=== PATIENT | female | born 1970 | race American Indian/Alaskan Native ===

== ENCOUNTER 2019-08-22 13:56 | Emergency (ER) | payer MEDICARE ==
[2019-08-22 14:03] VITALS: BP 156/102
--- NOTE | 2019-08-22 14:12 | Event Note ---
ED Screening Note Date of service: 08/22/19 Time: 14:08 ED Screening Note: 49 y/o female comes in for right knee pain and not been able to bend. Taking Ibuprofen and Tylenol. 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 This initial assessment/diagnostic orders/clinical plan/treatment(s) is/are subject to change based on patients health status, clinical progression and re- assessment by fellow clinical providers in the ED. Further treatment and workup at subsequent clinical providers discretion. Patient/guardian urged not to elope from the ED as their condition may be serious if not clinically assessed and managed. Initial orders include:
--- NOTE | 2019-08-22 14:40 | XRay Report ---
XR knee 3V RT INDICATION / CLINICAL INFORMATION: Worsening right knee pain. COMPARISON: 10/23/2018. FINDINGS: BONES/JOINT(S): Unchanged appearance of right total knee arthroplasty without evidence of hardware fr acture or loosening. No aggressive-appearing bone destruction or bone lesion. SOFT TISSUES: No significant abnormality. ADDITIONAL FINDINGS: None. Signer Name: Jonatan Wheeler MD Signed: 08/22/2019 2:36 PM Workstation Name: [id number]
--- NOTE | 2019-08-22 15:33 | Emergency Department Report ---
ED Back Pain/Injury HPI - General Chief Complaint: Extremity Injury, Lower Stated Complaint: RT KNEE PAIN/CANT BEND Time Seen by Provider: 08/22/19 14:08 Source: patient Limitations: No Limitations - History of Present Illness Initial Comments: 49 YO OBESE AA FEMALE COMES TO ER WITH A/C R KNEE PAIN. SHE IS SP REPLACEMENT 9 M AGO AND HAS HAD ONGOING PAIN. SHE STATES THAT SHE IS [place]; BUT SHE HAS BEEN SEEN IN 12-18 HERE IN ER. SHE HAS NO ORTHO MD IN ARE[place]. PAIN WORSE WITH MOVEMENT AMBULATES BUT LIMITED BY APIN PMH OBESE HTN ASTHMA DM RX INSULIN ALBUTEROL ADVAIR LISINOPRIL SHE HAS TAKEN OTC MEDS AT HOME WITH NO RELIEF MD Complaint: other -: Gradual, month(s) Similar Symptoms Previously: Yes Place: home Improves With: immobilization Worsens With: movement Associated Symptoms: denies other symptoms - Related Data Previous Rx's Medication Instructions Recorded Last Taken Type Ibuprofen [Motrin] 800 mg PO Q8HR PRN #30 tablet 08/22/19 Unknown Rx traMADol [Ultram] 50 mg PO Q6HR PRN #10 tablet 08/22/19 Unknown Rx Allergies Allergy/AdvReac Type Severity Reaction Status Date / Time hydrocodone Allergy Hives Verified 10/23/18 21:17 latex Allergy Unknown Verified 10/23/18 15:32 morphine Allergy Unknown Verified 10/23/18 15:32 Penicillins Allergy Unknown Verified 10/23/18 15:32 vancomycin Allergy Angioedema Verified 08/22/19 13:59 ED Review of Systems ROS: Stated complaint: RT KNEE PAIN/CANT BEND Other details as noted in HPI Comment: All other systems reviewed and negative ED Past Medical Hx - Past Medical History Medical history: asthma, diabetes, hypertension SVT-OBESE Surgical history: other (KNEE) Psychiatric history: no pertinent history REGIONAL ACCOUNT EXECUTIVE history: no REGIONAL ACCOUNT EXECUTIVE history - Social History Alcohol use: rarely Drug use: none ED Back Pain Physical Exam - Exam General: Vital signs noted. No distress. Alert and acting appropriately. DISTAL PULSES PLUS 2 NO CALF TENDERNESS OR SWELLING NO CYST NO JOINT LINE TENDERNESS NO EFFUSION; ALTHOUGH OBESITY LIMITS EXAM Back/Abdomen: No Abdominal Tenderness, No Perithoracic Tenderness, No Perilumbar Tenderness, No Sacroiliac Tenderness, No Flank Tenderness, No Straight Leg Raise Pain Neuro: Yes Normal Sensation, Yes Normal DTR's, Yes Normal Gait, No Motor Weakness ED Course Vital Signs 08/22/19 14:03 Temperature 98.6 F Pulse Rate 91 H Respiratory 16 Rate Blood Pressure 156/102 O2 Sat by Pulse 99 Oximetry Ed Back Pain Tests - Tests Tests: Normal X Rays ED Medical Decision Making - Radiology Data Radiology results: report reviewed, image reviewed - Medical Decision Making PT IS SP R KNEE REPLACEMENT 9 M AGO IN [place] SHE HAS HAD A/C PAIN SINCE SHE CAN NOT BEND KNEE WO PAIN DISTAL PULSES PLUS 2 NO EDEMA NO JOINT LINE TENDERNESS AMBULATORY TO ER BUT W PAIN NO ORTHO HERE- SHE HAS BEEN TO ER IN PAST BP ELEVATED SHE STAYS BECAUSE OF PAIN MEDICATED IN ER FOR PAIN CRUTCHES BODY HABITUS LIMITS USE OF KNEE IMMOB. DC HOME TO FOLLOW UP WITH DR HENNING Vital Signs 08/22/19 14:03 Temperature 98.6 F Pulse Rate 91 H Respiratory 16 Rate Blood Pressure 156/102 O2 Sat by Pulse 99 Oximetry - Differential Diagnosis RO FX/EFFUSION Critical care attestation.: If time is entered above; I have spent that time in minutes in the direct care of this critically ill patient, excluding procedure time. ED Disposition Clinical Impression: Knee pain, Chronic knee pain after total replacement of right knee joint, HTN (hypertension) Disposition: DC-01 TO HOME OR SELFCARE Is pt being admited?: No Does the pt Need Aspirin: No Condition: Stable Instructions: Knee Pain (ED) Additional Instructions: ALTERNATE ICE AND WARM COMPRESSES WORK ON WEIGHT IT AFFECTS JOINT HEALTH STAY WELL HYDRATED CONTINUE TO TAKE BP MEDS FOLLOW UP WITH PCP REFERRAL BELOW FOLLOW UP WITH ORTHO MD REFERRAL BELOW CRUTCHES TO HELP WITH PAIN ELEVATE LEG WHEN AT REST Prescriptions: Ibuprofen [Motrin] 800 mg PO Q8HR PRN #30 tablet PRN Reason: Pain, Moderate (4-6) traMADol [Ultram] 50 mg PO Q6HR PRN #10 tablet PRN Reason: Pain Referrals: [facility] [Outside] - 3-5 Days SKY HENNING MD [Staff Physician] - 3-5 Days Time of Disposition: 15:41
[2019-08-22] MEDS ORDERED: oxyCODONE /ACETAMINOPHEN 5-325MG TAB PO ONE (15:38)
[2019-08-22] MEDS ORDERED: KETOROLAC 60 MG/2 ML INJ IM ONE (15:38)
== END 2019-08-22 16:33 | disposition home or self-care (01) ==
LOC: ED 13:56
DX: M25.561 Pain in right knee (principal); G89.29 Other chronic pain; J45.909 Unspecified asthma, uncomplicated; I10 Essential (primary) hypertension; Z96.651 Presence of right artificial knee joint; Z91.040 Latex allergy status; Z88.5 Allergy status to narcotic agent; Z88.0 Allergy status to penicillin; Z88.1 Allergy status to other antibiotic agents; Z79.4 Long term (current) use of insulin
CPT/HCPCS: 73562; 96372; 99283; J1885

== ENCOUNTER 2019-08-30 08:39 | Emergency (ER) | payer MEDICARE ==
[2019-08-30] MEDS ORDERED: HumuLIN R IV ONE ×3 (08:57→10:39)
[2019-08-30] MEDS ORDERED: NACL 0.9% 1000 ML 1,000 ML IV ONE (08:57)
--- NOTE | 2019-08-30 08:57 | Emergency Department Report ---
HPI - General Time Seen by Provider: 08/30/19 08:46 - HPI HPI: 49 yo obese AA female comes to ER with r knee pain. Seen on 09-01 for same. She states she fell while taking grandkid to bus. She was given crutches on 09-01- she is not using She states she has ortho MD [facility] on 09-14 She has htn and DM she did not take insulin or check blood sugar see allergies ED Past Medical Hx - Past Medical History Previous Medical History?: Yes Hx Hypertension: Yes Hx Diabetes: Yes Additional medical history: SVT-OBESE - Surgical History Past Surgical History?: Yes Additional Surgical History: HERNIA REPAIR,HYSTERECTOMY,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,LEFT ANKLE X2,RIGHT KNEE - Family History Family history: no significant - Social History Smoking Status: Never Smoker Substance Use Type: None - Medications Home Medications: Home Medications Medication Instructions Recorded Confirmed Last Taken Type Ibuprofen [Motrin] 800 mg PO Q8HR PRN #30 tablet 08/30/19 Unknown Rx predniSONE [Deltasone] 20 mg PO DAILY #5 tablet 08/30/19 Unknown Rx ED Review of Systems ROS: Stated complaint: R KNEE PAIN Other details as noted in HPI Comment: All other systems reviewed and negative Physical Exam - Physical Exam Physical Exam: alert/oriented s1s2 lungs cta abd snt no effusion of knee small abrasion noted no pain on palpation of knee/joint lines ED Medical Decision Making - Lab Data Result diagrams: 08/30/19 09:05 - Radiology Data Radiology results: report reviewed, image reviewed - Medical Decision Making a/c knee pain requesting dilaudid see allergies reports her daughter is on drugs toradol - not helping her pain I suspect drug seeking behavior NS/ insulin given ph normal labs noted blood glucose trending down taking po non toxic non ill appearing dc home with follow up plan of care and follow up Vital Signs 08/30/19 08:53 Temperature 98.7 F Pulse Rate 78 Respiratory 16 Rate Blood Pressure 130/84 O2 Sat by Pulse 99 Oximetry Lab Results 08/30/19 08/30/19 08/30/19 Range/Units 09:04 09:05 09:05 [place] % (Auto) 9.3 H (0.0-7.3) % Eos % (Auto) 1.7 (0.0-4.3) % [place] # 0.3 (0.0-0.8) K/mm3 Eos # 0.1 (0.0-0.4) K/mm3 Baso # 0.0 (0.0-0.1) K/mm3 Seg Neutrophils % 53.3 (40.0-70.0) % Seg Neutrophils # 2.0 (1.8-7.7) K/mm3 VBG pH 7.366 (7.320-7.420) POC Glucose 447 H (70-105) - Differential Diagnosis a/cknee pain Critical care attestation.: If time is entered above; I have spent that time in minutes in the direct care of this critically ill patient, excluding procedure time. ED Disposition Clinical Impression: Chronic knee pain after total replacement of right knee joint, Abrasion, Hyperglycemia due to type 2 diabetes mellitus, Fall from ground level Disposition: DC- TO HOME OR SELFCARE Is pt being admited?: No Does the pt Need Aspirin: No Condition: Stable Instructions: Diabetes Mellitus Type 2 in Adults (ED), Arthralgia (ED) Additional Instructions: FOLLOW UP WITH ORTHO SCHEDULED XRAY OF KNEE NORMAL TAKE BP MEDS AND INSULIN INSTRUCTED DIABETIC DIET HYDRATE WELL USE THE CRUTCHES GIVEN TO YOU ON VISIT 10-9 Prescriptions: predniSONE [Deltasone] 20 mg PO DAILY #5 tablet Ibuprofen [Motrin] 800 mg PO Q8HR PRN #30 tablet PRN Reason: Pain, Moderate (4-6) Referrals: KONSTANTIN HUMPHREY MD [Primary Care Provider] - 3-5 Days SKY HENNING MD [Staff Physician] - 3-5 Days Time of Disposition: 09:42
[2019-08-30] MEDS ORDERED: TORADOL IV ONE (09:00)
[2019-08-30] MEDS ORDERED: TORADOL IM ONE (09:27)
--- NOTE | 2019-08-30 09:38 | XRay Report ---
RIGHT KNEE, 3 VIEWS INDICATION: Right knee pain. COMPARISON: None. IMPRESSION: Previous right knee arthroplasty is evident. The hardware appears well applied. No evide nce for acute osseous injury or joint pathology. The soft tissues are unremarkable. Signer Name: Selvin Winchester Jr, MD Signed: 08/30/2019 9:34 AM Workstation Name: [id number]
[2019-08-30 09:51] LABS: Basophils % (Auto) 0.5 % (0.0-1.8); Eosinophils # (Auto) 0.1 K/mm3 (0.0-0.4); Eosinophils % (Auto) 1.7 % (0.0-4.3); Hematocrit 40.1 % (30.3-42.9); Hemoglobin 13.3 gm/dl (10.1-14.3); Lymphocytes # (Auto) 1.3 K/mm3 (1.2-5.4); Lymphocytes % (Auto) 35.2 % (13.4-35.0); Mean Corpuscular HGB Conc 33 % (30-34); Mean Corpuscular Volume 90 fl (79-97); Monocytes # (Auto) 0.3 K/mm3 (0.0-0.8); Monocytes % (Auto) 9.3 % (0.0-7.3); Platelet Count 205 K/mm3 (140-440); Red Blood Count 4.48 M/mm3 (3.65-5.03); Red Cell Distribution Width 13.3 % (13.2-15.2)
[2019-08-30 10:22] LABS: BUN/Creatinine Ratio 15; Blood Urea Nitrogen 15 mg/dL (7-17); Calcium 9.1 mg/dL (8.4-10.2); Hemolysis Index 0
[2019-08-30 11:52] VITALS: BP 130/86
== END 2019-08-30 12:04 | disposition home or self-care (01) ==
LOC: ED 08:39
DX: S80.211A Abrasion, right knee, initial encounter (principal); E11.65 Type 2 diabetes mellitus with hyperglycemia; I10 Essential (primary) hypertension; G89.29 Other chronic pain; Z90.710 Acquired absence of both cervix and uterus; Z98.890 Other specified postprocedural states; Z79.899 Other long term (current) drug therapy; Z96.651 Presence of right artificial knee joint; Z88.5 Allergy status to narcotic agent; Z88.0 Allergy status to penicillin; Z88.1 Allergy status to other antibiotic agents; Z91.040 Latex allergy status; W01.198A Fall on same level from slipping, tripping and stumbling with subsequent striking against other object, initial encounter; Y93.89 Activity, other specified; Y92.89 Other specified places as the place of occurrence of the external cause; Y99.8 Other external cause status
CPT/HCPCS: 36415; 73562; 80048; 82805; 82962; 85025; 96361; 96372; 96374; 96376; 99284; J1885; J7030; J1815

== ENCOUNTER 2020-03-29 16:17 | Emergency (ER) | payer MEDICARE ==
--- NOTE | 2020-03-29 16:51 | XRay Report ---
RIGHT WRIST 3 VIEWS 1639 INDICATION: PAIN AND SWELLING COMPARISON: None available. FINDINGS: Mild carpal arthritic changes are noted. No fractures or dislocations are seen. Signer Name: Ari Akbar MD Signed: 03/29/2020 4:46 PM Workstation Name: [id number]
[2020-03-29 16:55] VITALS: BP 164/106
--- NOTE | 2020-03-29 17:30 | Emergency Department Report ---
Upper Extremity - HPI Chief Complaint: Extremity Injury, Upper Stated Complaint: ARM PAIN Time Seen by Provider: 03/29/20 16:50 Upper Extremity: Right Wrist (49-year-old female reports sharp pain to her right wrist which is worse with range of motion twisting and turning and beginning to cause some shooting tingling of her arm and cause her to drop objects) Occurred When: 3 Days Mechanism: Unsure, Other Severity: moderate Symptoms: Yes Pain with Movement, Yes Limited Range of Movement, No Numbness, No Weakness, No Swelling, No Bruising/Ecchymosis, No Laceration or Abrasion ED Review of Systems ROS: Stated complaint: ARM PAIN Other details as noted in HPI Comment: All other systems reviewed and negative ED Past Medical Hx - Past Medical History Hx Hypertension: Yes Hx Diabetes: Yes Hx Deep Vein Thrombosis: Yes Hx Asthma: Yes Additional medical history: SVT-OBESE - Surgical History Additional Surgical History: HERNIA REPAIR,HYSTERECTOMY,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,LEFT ANKLE X2,RIGHT KNEE - Social History Smoking Status: Never Smoker Substance Use Type: None - Medications Home Medications: Home Medications Medication Instructions Recorded Confirmed Last Taken Type Ibuprofen [Motrin] 800 mg PO Q8HR PRN #30 tablet 08/30/19 Unknown Rx predniSONE [Deltasone] 20 mg PO DAILY #5 tablet 08/30/19 Unknown Rx Ketorolac [Toradol] 10 mg PO Q6H PRN #15 tablet 03/29/20 Unknown Rx traMADoL [Ultram] 50 mg PO Q6HR PRN #20 tablet 03/29/20 Unknown Rx Upper Extremity Exam - Exam General: Vital signs noted. No distress. Alert and acting appropriately. Head and Torso: No HEENT Abnormality, No Neck Tenderness, No Chest/Lungs Ab normality, No Abdominal Tenderness, No Back Tenderness Shoulder Exam: Yes Normal Range of Motion in Shoulder, No Shoulder Tenderness, No Clavicle Tenderness, No Shoulder Deformity, No AC Joint Tenderness Arm Exam: No Arm/Humerus Tenderness, No Arm Deformity Elbow: No Elbow Tenderness, No Normal Range of Motion in Elbow, No Elbow Deformity Forearm: No Forearm Tenderness, No Forearm Deformity, No Pain with Pronation, No Pain with Supination Wrist: Yes Wrist Tenderness (Positive Tinel sign, pain with Phalen's test and tenderness along the carpal tunnel band), Yes Normal ROM in Wrist, No Wrist Deformity, No Snuffbox Tenderness, No Pain with Axial Thumb Compression Hand: Yes Normal ROM in Digit(s), No Hand Tenderness, No Hand Deformity, No Digit Tenderness, No Digit(s) Deformity, No Tendon Dysfunction CMS Exam: No Broken Skin, No Normal Distal Pulses, No Normal Capillary Refill, No Normal Distal Sensation ED Course Vital Signs 03/29/20 03/29/20 16:18 16:55 Temperature 98 F Pulse Rate 91 H 83 Respiratory 18 Rate Blood Pressure 183/111 Blood Pressure 164/106 [Left] O2 Sat by Pulse 98 Oximetry ED Medical Decision Making - Medical Decision Making 49-year-old female with wrist pain suggestive of carpal tunnel syndrome plan is to place in a wrist splint have her follow-up with Ortho for definitive treatment options Critical care attestation.: If time is entered above; I have spent that time in minutes in the direct care of this critically ill patient, excluding procedure time. ED Disposition Clinical Impression: Carpal tunnel syndrome Disposition: DC-01 TO HOME OR SELFCARE Is pt being admited?: No Does the pt Need Aspirin: No Condition: Stable Instructions: Carpal Tunnel Syndrome (ED) Prescriptions: Ketorolac [Toradol] 10 mg PO Q6H PRN #15 tablet PRN Reason: Pain traMADoL [Ultram] 50 mg PO Q6HR PRN #20 tablet PRN Reason: Pain Referrals: KONSTANTIN HUMPHREY MD [Primary Care Provider] - 3-5 Days SKY HENNING MD [Staff Physician] - 3-5 Days [facility] [Provider Group] - 3-5 Days
== END 2020-03-29 17:38 | disposition home or self-care (01) ==
LOC: ED 16:17
DX: G56.01 Carpal tunnel syndrome, right upper limb (principal); I10 Essential (primary) hypertension; E11.9 Type 2 diabetes mellitus without complications; J45.909 Unspecified asthma, uncomplicated; Z79.899 Other long term (current) drug therapy; Z88.0 Allergy status to penicillin; Z91.040 Latex allergy status; Z88.8 Allergy status to other drugs, medicaments and biological substances

== ENCOUNTER 2020-05-22 11:11 | Emergency (ER) | payer MEDICARE ==
[2020-05-22 11:20] VITALS: BP 158/97
--- NOTE | 2020-05-22 11:56 | XRay Report ---
LEFT ANKLE 3 VIEWS INDICATION: Pain, swelling, hx of surgery with hardware. COMPARISON: 10/23/2018 IMPRESSION: There is been previous fusion of the tibiotalar joint and subtalar joint with an intrame dullary bhanu and screws. There appears to be complete bony fusion at the tibiotalar joint and subtalar joint. There is also been previous surgical resection of the distal fibula. These findings are uncha nged since 10/23/2018. There is no obvious fracture, bone lesion or bony destruction. Moderate plant ar spur is noted. Moderate diffuse soft tissue swelling or edema is also identified. Signer Name: Selvin Winchester Jr, MD Signed: 05/22/2020 11:52 AM Workstation Name: [id number]
--- NOTE | 2020-05-22 12:37 | Emergency Department Report ---
Chief Complaint: Extremity Problem,Nontraumatic Stated Complaint: LEFT FOOT PAIN Time Seen by Provider: 05/22/20 12:59 - HPI History of Present Illness: This is a 49-year-old female presents the ED complaining of left ankle pain s for 3 days. Patient states she had surgery on that ankle some years ago when she had rods placed. Patient states pain and swelling began 3 days ago. She denies any injury trips or falls - ROS Review of Systems: As noted in HPI - Exam Vital Signs: Vital Signs 05/22/20 11:19 Temperature 98.4 F Pulse Rate 86 Respiratory 18 Rate Blood Pressure 158/97 O2 Sat by Pulse 99 Oximetry Physical Exam: GENERAL: Alert and oriented x3, no apparent distress, Normal Gait, atraumatic. HEAD: Head is normocephalic and a-traumatic. EXTREMITIES/MUSCULOSKELETAL: No cyanosis, clubbing, rash, lesions. Full ROM bilaterally. Pedal pulses 2+ bilaterally. LE 5+ strength bilaterally, mild soft tissue swelling to the left ankle nonpitting edema mild tenderness to palpation. Hold healed scars noted from surgery SKIN: Warm and dry, No lesions, No ulceration or induration present. MSE screening note: Focused history and physical exam performed. Due to findings the following was ordered: ED Medical Decision Making - Radiology Data Radiology results: report reviewed, image reviewed Fluoro Time In Minutes: LEFT ANKLE 3 VIEWS INDICATION: Pain, swelling, hx of surgery with hardware. COMPARISON: 10/23/2018 IMPRESSION: There is been previous fusion of the tibiotalar joint and subtalar joint with an intramedullary bhanu and screws. There appears to be complete bony fusion at the tibiotalar joint and subtalar joint. There is also been previous surgical resection of the distal fibula. These findings are unchanged since 10/23/2018. There is no obvious fracture, bone lesion or bony destruction. Moderate plantar spur is noted. Moderate diffuse soft tissue swelling or edema is also identified. Signer Name: Selvin Warren Jr, MD Signed: 05/22/2020 11:52 AM Workstation Name: [id number] Transcribed By: TTR Dictated By: SELVIN WARREN JR, MD Electronically Authenticated By: SELVIN WARREN JR, MD Signed Date/Time: 05/22/20 1152 - Medical Decision Making 49-year-old female presents to ED with left ankle pain ED course: Patient received Toradol and Flexeril in ED. Vital signs are normal patient is in no acute distress Discussed with patient follow-up with primary care physician. Discussed the patient and take medications as prescribed. Patient has no neurological deficit. Patient is alert and oriented 3 and understands all instructions given. Discussed drowsiness effect of Flexeril makes her drowsy and not to operate machinery while taking flexeril ED Disposition for MSE Clinical Impression: Left ankle strain, Left ankle pain Disposition: TO HOME OR SELFCARE Is pt being admited?: No Does the pt Need Aspirin: No Condition: Stable Instructions: Arthralgia (ED), Muscle Strain (ED) Additional Instructions: Make sure to follow up with the primary care physician as well as orthopedic doctor discussed. Take all your medications as you've been prescribed. If you have any worsening symptoms or develop new symptoms please return to ED immediately. Prescriptions: Ibuprofen [Motrin 800 MG tab] 800 mg PO Q8HR PRN #30 tablet PRN Reason: Pain, Moderate (4-6) traMADoL [Ultram 50 MG tab] 50 mg PO Q6HR PRN #20 tablet PRN Reason: Pain Referrals: PRIMARY CARE, [Primary Care Provider] - 3-5 Days [facility] [Provider Group] - 3-5 Days Forms: Work/School Release Form(ED) Time of Disposition: 13:11
== END 2020-05-22 13:17 | disposition home or self-care (01) ==
LOC: ED 11:11
DX: S96.912A Strain of unspecified muscle and tendon at ankle and foot level, left foot, initial encounter (principal); X58.XXXA Exposure to other specified factors, initial encounter; Y93.89 Activity, other specified; Y92.89 Other specified places as the place of occurrence of the external cause; Y99.8 Other external cause status
CPT/HCPCS: 99283

== ENCOUNTER 2022-01-27 14:27 | Emergency (ER) | payer MEDICARE ==
[2022-01-27] MEDS ORDERED: SODIUM CHLORIDE 0.9% 1000 ML 1,000 ML ONE (15:38)
[2022-01-27] MEDS ORDERED: diphenhydrAMINE 50 MG/ML VIAL IV ONE (16:48)
[2022-01-27] MEDS ORDERED: METOCLOPRAMIDE 10 MG/2 ML INJ IV ONE (16:48)
[2022-01-27] MEDS ORDERED: HYDROmorphone 1 MG/1 ML INJ IV ONE ×2 (16:52→19:46)
[2022-01-27 16:57] LABS: Bilirubin,Urine NEG (Negative); Blood,Urine NEG (Negative); Color,Urine Yellow (Yellow); Mucus,Urine FEW /HPF; Urobilinogen,Urine < 2.0 mg/dL (<2.0)
--- NOTE | 2022-01-27 16:58 | Emergency Department Report ---
ED Eye Problem HPI - General Chief complaint: Hyperglycemia Stated complaint: HEADACHE Time Seen by Provider: 01/27/22 16:20 Source: patient, EMS Mode of arrival: Ambulatory Limitations: No Limitations - History of Present Illness Initial comments: 51-year-old female with a past medical history of obesity, hypertension, and diabetes presents to the hospital complaining of right sided headache, eye pain, and visual loss. For the past 1 week patient has been having right-sided headache with episodes of seeing flashing colors coming towards her and blurred vision. Pain has been persistent but fluctuating in intensity. 1 week ago she saw a "eye doctor" and was diagnosed with ocular migraine. She is unsure if this person was fashion artist or cattery operator. Patient also states she has poor vision at baseline and needs glasses. Since yesterday she noticed that she had a lateral field deficit described as a "curtain" involving her right eye and has been seeing increasing flashes of lights of color comming towards her described lights similar to the soul train (tv show) and light and fireworks. Patient recontacted her eye doctor 2 days ago due to worsening symptoms and was told she would be referred to a retinal specialist. Patient was not placed on any specific medications for her symptoms. Headache and visual symptoms intensified today so she came to the ER for evaluation. She states she is compliant with her insulin and BP medications and suspects that both values are up secondary to pain. No other focal weakness or numbness reported. Pain is currently severe, worse with light with associated nausea and dizziness. - Related Data Previous Rx's Medication Instructions Recorded Last Taken Type predniSONE [Deltasone] 20 mg PO DAILY #5 tablet 08/30/19 Unknown Rx Ketorolac [Toradol] 10 mg PO Q6H PRN #15 tablet 03/29/20 Unknown Rx Ibuprofen [Motrin 800 MG tab] 800 mg PO Q8HR PRN #30 tablet 05/22/20 Unknown Rx oxyCODONE /ACETAMINOPHEN [Percocet 1 tab PO Q6HR PRN #10 tablet 05/22/20 Unknown Rx 5/325] Allergies Allergy/AdvReac Type Severity Reaction Status Date / Time hydrocodone Allergy Hives Verified 01/27/22 14:31 latex Allergy Unknown Verified 01/27/22 14:31 morphine Allergy Unknown Verified 01/27/22 14:31 Penicillins Allergy Unknown Verified 01/27/22 14:31 vancomycin Allergy Angioedema Verified 01/27/22 14:31 ED Review of Systems ROS: Stated complaint: HEADACHE Other details as noted in HPI Comment: All other systems reviewed and negative ED Past Medical Hx - Past Medical History Hx Hypertension: Yes Hx Diabetes: Yes Hx Deep Vein Thrombosis: Yes Hx Asthma: Yes Hx Tuberculosis: No Additional medical history: SVT - Surgical History Additional Surgical History: HERNIA REPAIR,HYSTERECTOMY,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,LEFT ANKLE X2,RIGHT KNEE - Social History Smoking Status: Unknown if ever smoked - Medications Home Medications: Home Medications Medication Instructions Recorded Confirmed Last Taken Type predniSONE [Deltasone] 20 mg PO DAILY #5 tablet 08/30/19 Unknown Rx Ketorolac [Toradol] 10 mg PO Q6H PRN #15 tablet 03/29/20 Unknown Rx Ibuprofen [Motrin 800 MG tab] 800 mg PO Q8HR PRN #30 tablet 05/22/20 Unknown Rx oxyCODONE /ACETAMINOPHEN [Percocet 1 tab PO Q6HR PRN #10 tablet 05/22/20 Unknown Rx 5/325] ED Physical Exam - General Limitations: No Limitations - Other Other exam information: General: Moderate distress secondary to Head: Atraumatic Eyes: normal appearance, pupils equal react to light, no conjunctival injection, mild pain to right eye with movement. Right eye photosensitivity, right eye lateral visual field defect, retina detachment not identified on bedside ultrasound. Unable to obtain visual acuity due to severe pain advised activity. Denis-Pen not available to obtain ocular pressures ENT: Moist mucous membranes Neck: Normal appearance, no midline tenderness, no nuchal rigidity Chest: Clear to auscultation bilaterally CV: Regular rate and rhythm Abdomen: Soft, normal bowel sounds, nontender, nondistended, no rebound or gu arding Back: Normal inspection Extremity: Normal inspection, full range of motion Neuro: Alert O x 3, no facial asymmetry, speech clear, no gross motor sensory deficit Psych: Appropriate behavior Skin: No rash ED Course Vital Signs 01/27/22 01/27/22 01/27/22 14:29 16:33 18:40 Temperature 99.4 F Pulse Rate 92 H 71 Respiratory 18 19 Rate Blood Pressure 176/114 146/78 [Left] Blood Pressure [Right] O2 Sat by Pulse 98 98 98 Oximetry 01/27/22 01/27/22 19:40 19:41 Temperature 99.1 F Pulse Rate 76 78 Respiratory 22 16 Rate Blood Pressure [Left] Blood Pressure 127/86 [Right] O2 Sat by Pulse 99 99 Oximetry - Consultations Consultation #1: 01/27/22 19:52 case d/w [place] transfer, awaiting ophthalmology call back 01/27/22 20:01 Patient accepted by cattery operator at the [facility] for transfer to ER. Awaiting callback from ED attending 01/27/22 20:05 Case d/w Dr Booth Ed attending who has accepted patient for transfer. - Procedure Description Procedures done: Unofficial bedside ocular ultrasound attempted in the ED. No obvious signs of retina or posterior vitreous humor detachment ED Medical Decision Making - Lab Data Result diagrams: 01/27/22 17:30 01/27/22 17:30 Lab Results 01/27/22 01/27/22 01/27/22 Range/Units 16:34 17:30 17:30 WBC 4.8 (4.5-11.0) K/mm3 RBC 4.72 (3.65-5.03) M/mm3 Hgb 13.1 (10.1-14.3) gm/dl Hct 41.2 (30.3-42.9) % MCV 87 (79-97) fl MCH 28 (28-32) pg MCHC 32 (30-34) % RDW 13.5 (13.2-15.2) % Plt Count 237 (140-440) K/mm3 Lymph % (Auto) 28.6 (13.4-35.0) % [place] % (Auto) 7.6 H (0.0-7.3) % Eos % (Auto) 0.8 (0.0-4.3) % Baso % (Auto) 0.6 (0.0-1.8) % Lymph # (Auto) 1.4 (1.2-5.4) K/mm3 [place] # (Auto) 0.4 (0.0-0.8) K/mm3 Eos # (Auto) 0.0 (0.0-0.4) K/mm3 Baso # (Auto) 0.0 (0.0-0.1) K/mm3 Seg Neutrophils % 62.4 (40.0-70.0) % Seg Neutrophils # 3.0 (1.8-7.7) K/mm3 PT (12.2-14.9) Sec. INR (0.87-1.13) APTT VBG pH (7.320-7.420) Sodium 130 L (137-145) mmol/L Potassium 4.5 (3.6-5.0) mmol/L Chloride 96.6 L (98-107) mmol/L Carbon Dioxide 18 L (22-30) mmol/L Anion Gap 20 mmol/L BUN 13 (7-17) mg/dL Creatinine 1.0 (0.6-1.2) mg/dL Estimated GFR > 60 ml/min BUN/Creatinine Ratio 13 % Glucose 459 H (65-100) mg/dL Calcium 9.0 (8.4-10.2) mg/dL Urine Color Yellow (Yellow) Urine Turbidity Clear (Clear) Urine pH 5.0 (5.0-7.0) Ur Specific [place] 1.027 (1.003-1.030) Urine Protein 100 mg/dl (Negative) mg/dL Urine Glucose (UA) >=500 (Negative) mg/dL Urine Ketones 20 (Negative) mg/dL Urine Blood Neg (Negative) Urine Nitrite Neg (Negative) Urine Bilirubin Neg (Negative) Urine Urobilinogen < 2.0 (<2.0) mg/dL Ur Leukocyte Esterase Tr (Negative) Urine WBC (Auto) 6.0 (0.0-6.0) /HPF Urine RBC (Auto) 2.0 (0.0-6.0) /HPF U Epithel Cells (Auto) 29.0 H (0-13.0) /HPF Urine Mucus Few /HPF Urine Yeast (Budding) Few /HPF 01/27/22 01/27/22 Range/Units 17:30 17:30 WBC (4.5-11.0) K/mm3 RBC (3.65-5.03) M/mm3 Hgb (10.1-14.3) gm/dl Hct (30.3-42.9) % MCV (79-97) fl MCH (28-32) pg MCHC (30-34) % RDW (13.2-15.2) % Plt Count (140-440) K/mm3 Lymph % (Auto) (13.4-35.0) % [place] % (Auto) (0.0-7.3) % Eos % (Auto) (0.0-4.3) % Baso % (Auto) (0.0-1.8) % Lymph # (Auto) (1.2-5.4) K/mm3 [place] # (Auto) (0.0-0.8) K/mm3 Eos # (Auto) (0.0-0.4) K/mm3 Baso # (Auto) (0.0-0.1) K/mm3 Seg Neutrophils % (40.0-70.0) % Seg Neutrophils # (1.8-7.7) K/mm3 PT 12.9 (12.2-14.9) Sec. INR 0.88 (0.87-1.13) APTT TNR VBG pH 7.440 H (7.320-7.420) Sodium (137-145) mmol/L Potassium (3.6-5.0) mmol/L Chloride (98-107) mmol/L Carbon Dioxide (22-30) mmol/L Anion Gap mmol/L BUN (7-17) mg/dL Creatinine (0.6-1.2) mg/dL Estimated GFR ml/min BUN/Creatinine Ratio % Glucose (65-100) mg/dL Calcium (8.4-10.2) mg/dL Urine Color (Yellow) Urine Turbidity (Clear) Urine pH (5.0-7.0) Ur Specific [place] (1.003-1.030) Urine Protein (Negative) mg/dL Urine Glucose (UA) (Negative) mg/dL Urine Ketones (Negative) mg/dL Urine Blood (Negative) Urine Nitrite (Negative) Urine Bilirubin (Negative) Urine Urobilinogen (<2.0) mg/dL Ur Leukocyte Esterase (Negative) Urine WBC (Auto) (0.0-6.0) /HPF Urine RBC (Auto) (0.0-6.0) /HPF U Epithel Cells (Auto) (0-13.0) /HPF Urine Mucus /HPF Urine Yeast (Budding) /HPF - EKG Data -: EKG Interpreted by Me EKG shows normal: sinus rhythm, ST-T waves (no stemi) Rate: normal (77) - Radiology Data Radiology results: report reviewed CT head/brain wo con INDICATION / CLINICAL INFORMATION: 51 years Female; right headache, lateral visual field loss, flashin. TECHNIQUE: Routine CT head without contrast. All CT scans at this location are performed using CT dose reduction for ALARA by means of automated exposure control. COMPARISON: None. FINDINGS: BRAIN / INTRACRANIAL CONTENTS: No acute hemorrhage, mass effect, midline shift, hydrocephalus, or acute, large territorial infarct. No signs of significant atrophy or chronic infarct. No significant white matter abnormality seen. CRANIOCERVICAL JUNCTION: No significant abnormality. ORBITS: No significant abnormality of visualized orbits. SINUSES / MASTOIDS: Visualized paranasal sinuses and mastoid air cells are essentially clear. ADDITIONAL FINDINGS: None. IMPRESSION: 1. No focal mass, hemorrhage, hydrocephalus, or acute, large territorial infarct. - Medical Decision Making 51-year-old female presents to the hospital with right eye pain with visual changes with recent diagnosis of ocular migraine. Patient also presented with hypertension and hyperglycemia. Hypertension improved with pain medications. No signs of DKA as per labs and patient was treated with IV fluids and insulin for hyperglycemia. Glucose improved to 233. No obvious signs of retinal detachment on bedside ultrasound. Patient having significant light sensitivity with difficulty obtaining visual acuity. We do not have Denis-Pen available to obtain ocular pressure. CT head unremarkable. Patient required multiple meds to reduce pain symptoms. Patient has been accepted for transfer to [place] ED for further evaluation Critical Care Time: Yes Critical care time in (mins) excluding proc time.: 35 Critical care attestation.: If time is entered above; I have spent that time in minutes in the direct care of this critically ill patient, excluding procedure time. Critical Care Time: 35 Minutes of critical care time excluding procedures were used in the care of the patient. I discussed treatment plan with the nursing team members. I reviewed electronic record. Patient required multiple reassessments. Patient required multiple consultations for coordination of transfer for evaluation of specialist ED Disposition Clinical Impression: Ocular migraine, Visual disturbance, Hyperglycemia, HTN (hypertension), Obesity Disposition: 02 SHORT TERM HOSPITAL Is pt being admited?: No Condition: Stable Instructions: Hypertension (ED) Time of Disposition: 20:43 ([place] [facility] transfer due to lack of ophthalmology) - Assessment Assessment Interval: Baseline - Level of Consciousness 1a. Level of Consciousness: alert/keenly responsive - LOC Questions 1b. LOC Questions: answers both correctly - LOC Command 1c. LOC Commands: performs tasks correctly - Best Gaze 2. Best Gaze: normal - Visual 3. Visual: complete hemianopia - Facial Palsy 4. Facial Palsy: normal symmetrical movement - Motor Arm 5a. Motor Arm Left: no drift 5b. Motor Arm Right: no drift - Motor Leg 6a. Motor Leg Left: no drift 6b. Motor Leg Right: no drift - Limb Ataxia 7. Limb Ataxia: absent - Sensory 8. Sensory: normal - Best Language 9. Best Language: no aphasia - Dysarthria 10. Dysarthria: normal - Extinction and Inattention 11. Extinction/Inattention: no abnormality - Scoring Total Score: 2 Stroke Severity: Minor Stroke
[2022-01-27 17:41] LABS: Basophils % (Auto) 0.6 % (0.0-1.8); Eosinophils % (Auto) 0.8 % (0.0-4.3); Hematocrit 41.2 % (30.3-42.9); Hemoglobin 13.1 gm/dl (10.1-14.3); Lymphocytes # (Auto) 1.4 K/mm3 (1.2-5.4); Lymphocytes % (Auto) 28.6 % (13.4-35.0); Mean Corpuscular HGB Conc 32 % (30-34); Mean Corpuscular Volume 87 fl (79-97); Monocytes # (Auto) 0.4 K/mm3 (0.0-0.8); Monocytes % (Auto) 7.6 % (0.0-7.3); Platelet Count 237 K/mm3 (140-440); Red Blood Count 4.72 M/mm3 (3.65-5.03); Red Cell Distribution Width 13.5 % (13.2-15.2)
[2022-01-27 17:51] LABS: INR 0.88 (0.87-1.13)
[2022-01-27 18:03] LABS: BUN/Creatinine Ratio 13; Blood Urea Nitrogen 13 mg/dL (7-17); Hemolysis Index 39
--- NOTE | 2022-01-27 18:11 | Cat Scan Report ---
CT head/brain wo con INDICATION / CLINICAL INFORMATION: 51 years Female; right headache, lateral visual field loss, flashin. TECHNIQUE: Routine CT head without contrast. All CT scans at this location are performed using CT dos e reduction for ALARA by means of automated exposure control. COMPARISON: None. FINDINGS: BRAIN / INTRACRANIAL CONTENTS: No acute hemorrhage, mass effect, midline shift, hydrocephalus, or acu te, large territorial infarct. No signs of significant atrophy or chronic infarct. No significant whi te matter abnormality seen. CRANIOCERVICAL JUNCTION: No significant abnormality. ORBITS: No significant abnormality of visualized orbits. SINUSES / MASTOIDS: Visualized paranasal sinuses and mastoid air cells are essentially clear. ADDITIONAL FINDINGS: None. IMPRESSION: 1. No focal mass, hemorrhage, hydrocephalus, or acute, large territorial infarct. Signer Name: Azar Gomez MD, III Signed: 01/27/2022 6:07 PM Workstation Name: [id number]
[2022-01-27] MEDS ORDERED: INSULIN REGULAR, HUMAN 100 UNITS/1 ML IV ONE (18:32)
[2022-01-27 18:36] LABS: Partial Thromboplastin Time TNR Sec. (24.2-36.6)
[2022-01-27] MEDS ORDERED: KETOROLAC 30 MG/1 ML INJ IV ONE (19:46)
[2022-01-27 21:37] VITALS: BP 114/75
--- NOTE | 2022-01-29 19:09 | Electrocardiograph Report ---
[facility] Test Date: 2022-01-27 Test Time: 19:31:35 Pat Name: JORDANA SHERWOOD Department: Room: Gender: F Hyperbaric Technologist: SOFIE : 1970 Requested By: ISRA COLLINS Order Number: [id number] Reading MD: Seb Kraus Measurements Intervals [place] Rate: 77 P: 21 OR: 130 QRS: 33 QRSD: 77 T: 64 QT: 373 QTc: 423 Interpretive Statements Sinus rhythm Low voltage, precordial leads [id number] No previous ECG available for comparison Electronically Signed On 01-29-2022 19:08:44 EDT by Seb Kraus
== END 2022-01-27 21:57 | disposition short-term general hospital (02) ==
LOC: ED 14:27
DX: G43.809 Other migraine, not intractable, without status migrainosus (principal); H53.8 Other visual disturbances; E11.65 Type 2 diabetes mellitus with hyperglycemia; E87.6 Hypokalemia; I10 Essential (primary) hypertension; E66.9 Obesity, unspecified; Z86.718 Personal history of other venous thrombosis and embolism; J45.909 Unspecified asthma, uncomplicated; Z79.899 Other long term (current) drug therapy; Z98.890 Other specified postprocedural states; Z91.040 Latex allergy status; Z88.0 Allergy status to penicillin; Z91.09 Other allergy status, other than to drugs and biological substances
CPT/HCPCS: 36415; 70450; 80048; 81001; 82805; 85025; 85610; 93005; 96374; 96375; 96376; 99291; J1170; J1200; J1885; J2765; J7030; 99284; Q0162; Q9967; J1815